=== PATIENT | female | born 1945 | race Caucasian/White ===

== ENCOUNTER 2016-10-16 12:43 | Inpatient (IN) | payer MEDICARE ==
[~2016-10-16] VITALS: Ht 157.5 cm; Wt 86.3 kg
[2016-10-16] MEDS ORDERED: PRAV20TA2 PO (14:09)
[2016-10-16] MEDS ORDERED: METF1000 PO (14:09)
[2016-10-16] MEDS ORDERED: ASPI325T PO (14:09)
[2016-10-16] MEDS ORDERED: PARO10TA2 PO (14:09)
[2016-10-16] MEDS ORDERED: LOSA25TA PO (14:41)
[2016-10-16] MEDS ORDERED: MULT-135 PO (14:41)
[2016-10-16] MEDS ORDERED: METO25TA3 PO (14:41)
[2016-10-16] MEDS ORDERED: SPIR25TA PO (14:41)
[2016-10-16] MEDS ORDERED: KRIL1000 PO (14:41)
[2016-10-16] MEDS ORDERED: FURO40TA PO (14:41)
[2016-10-16] MEDS ORDERED: CINN500T PO (14:41)
[2016-10-17 09:30] VITALS: BP 110/75; PULSE 88; RESP 18; TEMP 98; O2SAT 97
[2016-10-17] MEDS ORDERED: DEXAMETHASONE SOD PHOS 20 MG/5 ML VIAL ONE (09:52)
[2016-10-17] MEDS ORDERED: ceFAZolin 2 GM PREMIX 50 ML ONE (09:54)
[2016-10-17] MEDS ORDERED: VANCOMYCIN HCL 1000 MG VIAL ONE (09:56)
[2016-10-17] MEDS ORDERED: SODIUM CHLOR 0.9% 250 ML INJ 250 ML ONE (09:57)
[2016-10-17] MEDS ORDERED: LACTATED RINGER'S 1000 ML INJ 1,000 ML ONE (09:57)
[2016-10-17] MEDS ORDERED: MIDAZOLAM HCL 2 MG/2 ML VIAL ONE (10:23)
[2016-10-17] MEDS: SODIUM CHLORIDE 0.9% IV SCH ×2 (10:45→11:15)
[2016-10-17] MEDS: ROPIVACAINE PERI-ARTICULAR INJECTION. PERIART SCH ×10 (10:45→12:37)
[2016-10-17] MEDS: TRANEXAMIC ACID IV SCH ×2 (10:45→11:15)
[2016-10-17] MEDS ORDERED: GENTAMICIN SULFATE 80 MG/2 ML VIAL ONE (10:47)
[2016-10-17] MEDS ORDERED: ePHEDrine/NS 25 MG/5 ML SYR IV ONE (11:21)
[2016-10-17] MEDS ORDERED: PROPOFOL 200 MG/20 ML AMP IV ONE (11:21)
[2016-10-17] MEDS ORDERED: PHENYLEPH/NS 1000 MCG/10 ML SYR IV ONE (11:21)
[2016-10-17] MEDS ORDERED: ONDANSETRON HCL 4 MG/2 ML VIAL IV PUSH ONE (11:21)
[2016-10-17] MEDS ORDERED: VANCOMYCIN 1000 MG/NS 250 ML (for <70 kg) IV SCH ×2 (11:45)
[2016-10-17] MEDS ORDERED: ceFAZolin 2 GM PREMIX 50 ML IV SCH (11:45)
[2016-10-17] MEDS: POVIDONE IODINE 7.5% SCRUB 118 ML BOTTLE TOP SCH (11:45)
[2016-10-17] MEDS ORDERED: BUPIVACAINE LIPOSOME PF 1.3% 20 ML VIAL ONE (11:54)
[2016-10-17] MEDS: SODIUM CHLOR 0.9% 1000 ML INJ 1,000 ML IV SCH ×2 (13:03→23:03)
--- NOTE | 2016-10-17 13:06 | PD.OP ---
cc: Yovanny Tolbert MD Operative Report Date of Surgery: Oct 17, 2016 Preoperative Diagnosis: Right knee severe osteoarthritis Postoperative Diagnosis: Same Procedure: Right total knee arthroplasty Anesthesia: Adductor canal block and general Surgeon: Yovanny Tolbert Sander Operator(s): YAHIR Denis The surgical procedure was assisted by my Advanced Registered Nurse Practitioner. My SERVICE DESK LEAD presence was necessary throughout this case for the manipulation and positioning of the surgical extremity. My SERVICE DESK LEAD was assisting me throughout the duration of this procedure. The skill set of an Advance Registered Nurse Practitioner was medically necessary to complete this procedure. During the surgical case, the master hearth technician was working at the back table and the Advance Registered Nurse Practitioner was directly assisting me. Operation and Findings: IMPLANTS: DePuy Attune: Patella: size 29. Femur, posterior stabilized size 6. Tibia, rotating platform size 5. Tibial insert, rotating platform, posterior stabilized size 7 mm thickness. ESTIMATED BLOOD LOSS: 150 cc TOURNIQUET TIME: 44 minutes at 250 mmHg pressure. JUSTIFICATION FOR PROCEDURE: The patient has end-stage osteoarthritis to the knee. There is an attached conservative measures pathway form in the chart that describes the nonoperative measures that were undertaken prior to consideration of surgical management. The patient understood the risks and benefits of surgical management. See my office notes for further details PROCEDURE: The patient was brought back to the operative theatre. Adequate anesthesia was obtained. The patient received intravenous vancomycin and Ancef. The lower extremity was prepped and draped in the usual sterile fashion.The leg was exsanguinated, the tourniquet was raised. A standard anterior incision was performed followed by medial parapatellar arthrotomy was performed. End-stage arthritis was identified. Osteotomy of the patella was performed. We drilled holes for the patella. We trialed the patella component. We placed an intramedullary guide into the distal femur. We ultimately resected 11 mm off of the distal femur in 5 degrees of valgus. The remnants of the ACL and PCL were resected. Osteotomy of the proximal tibia was performed, resecting 5 mm off of the medial side. This was done with 3 degrees of posterior slope using an extramedullary guide. The distal end of the guide was placed in the mid aspect of the ankle. The femur was sized, and four chamfer cuts were completed in 3 of external rotation. We then cut the central box in the distal femur to replace the PCL. We resected the remnants of the menisci and removed osteophytes off of the femur and tibia. We then trialed the knee. We punched the tibia for the keel, and then used standard technique to cement in components. Excess cement was removed. We trialed the knee again and the final polyethylene thickness was chosen to provide extension to 0 degrees, and flexion of 140 degrees to gravity. The ligaments were appropriately balanced. Lateral release was necessary to obtain excellent patellofemoral tracking. The tourniquet was released and adequate hemostasis was obtained. An intra- articular injection of a ropivacaine cocktail was injected. The posterior knee was inspected for excess cement, which was removed. The final polyethylene was put into position after thorough irrigation. We then closed deep fascia with a #2 Stratafix followed by skin with 2-0 Vicryl followed by terrie. Postop plan is to weight-bear as tolerated. DVT prophylaxis will be performed with Jorge L, CONNIE drake, early mobilization, and Lovenox followed by aspirin. Yovanny Tolbert MD Oct 17, 2016 13:06
[2016-10-17] MEDS ORDERED: NORC5TAB PO (13:07)
[2016-10-17] MEDS ORDERED: ASPI325T PO (13:07)
[2016-10-17] MEDS ORDERED: ENOX40P SQ (13:07)
[2016-10-17] MEDS ORDERED: ACETAMINOPHEN/HYDROcodone 325 MG/5 MG TAB PO PRN (13:15)
[2016-10-17] MEDS ORDERED: NALOXONE HCL 0.4 MG/ML AMP IV PRN (13:15)
[2016-10-17] MEDS ORDERED: MAGNESIUM HYDROXIDE SUSP 30 ML CUP PO PRN (13:15)
[2016-10-17] MEDS ORDERED: MORPHINE SULFATE 4 MG/ML INJ IV PUSH PRN (13:15)
[2016-10-17] MEDS ORDERED: SODIUM CHLORIDE 0.9% FLUSH 5 ML FLUSH IVF PRN (13:15)
[2016-10-17] MEDS ORDERED: Post-op Orders (for Pharmacy) MISC XX ONE (13:15)
[2016-10-17] MEDS ORDERED: ALUMINUM/MAGNESIUM/SIMETH 30 ML CUP PO PRN (13:15)
[2016-10-17] MEDS ORDERED: diphenhydrAMINE HCL 50 MG/ML VIAL IV PRN (13:15)
[2016-10-17] MEDS ORDERED: ZOLPIDEM TARTRATE 5 MG TAB PO PRN (13:15)
[2016-10-17] MEDS ORDERED: ONDANSETRON HCL 4 MG/2 ML VIAL IVP PRN (13:15)
[2016-10-17] MEDS ORDERED: BISACODYL 10 MG SUPP PR PRN (13:15)
[2016-10-17] MEDS ORDERED: DO NOT ADM ANY ANTICOAGULANT DRUGS XX PRN (13:30)
[2016-10-17] MEDS ORDERED: fentaNYL CITRATE 250 MCG/5 ML AMP ONE (13:43)
[2016-10-17] MEDS ORDERED: TRANEXAMIC ACID IV SCH (14:00)
[2016-10-17] MEDS ORDERED: SODIUM CHLORIDE 0.9% IV SCH (14:00)
--- NOTE | 2016-10-17 14:10 | PD.CONS ---
[facility] By Reason for Consult medical management Primary Care Physician Non-Staff Diagnoses: History of Present Illness patient is a 70 y/o female with history of osteoarthritis who underwent right total knee arthroplasty today. at the time of my evaluation she was in no acute distress,complaining of mild to moderate pain to the right knee. otherwise no chest pain, dizziness,or sob. Review of Systems Constitutional: DENIES: Fever, Weight loss, Chills, Night Sweats Eyes: DENIES: Blurred vision, Diplopia, Vision loss, Double Vision Ears, nose, mouth, throat: DENIES: Tinnitus, Vertigo, Throat pain, Epistaxis Respiratory: DENIES: Apneas, Cough, Snoring, Wheezing, Hemoptysis, Sputum production, Shortness of breath Cardiovascular: DENIES: Chest pain, Palpitations, Syncope, Dyspnea on Exertion , PND, Lower Extremity Edema, Orthopnea, Claudication Gastrointestinal: DENIES: Abdominal pain, Black stools, Bloody stools, Constipation, Diarrhea, Nausea, Vomiting, Difficulty Swallowing, Anorexia Genitourinary: DENIES: Urinary frequency, Urgency, Hematuria, Dysuria Musculoskeletal: COMPLAINS OF: Joint pain (right knee), DENIES: Muscle aches, Stiffness, Joint Swelling Integumentary: DENIES: Rash Neurologic: DENIES: Abnormal gait, Headache, Localized weakness, Paresthesias, Seizures, Speech Problems, Tremor, Poor Balance Psychiatric: DENIES: Anxiety, Confusion, Mood changes, Depression, Hallucinations, Agitation, Suicidal Ideation, Homicidal Ideation, Delusions Past Family Social History Allergies: Coded Allergies: Sulfa (Unverified Allergy, Intermediate, RASH- ITCHING, 10/17/16) Adhesives (Unverified Allergy, Mild, ITCHING, 10/17/16) Past Medical History hypertension CHF diabetes mellitus depression breast cancer Past Surgical History cholecystectomy knee replacement mastectomy Reported Medications metformin metoprolol losartan lasix aldactone paxil Active Ordered Medications Current Medications Dexamethasone Sodium Phosphate 20 mg 20 mg STK-MED ONCE .ROUTE Last administered on 10/17/16 09:55; Start 10/17/16 at 09:52; Stop 10/17/16 at 09:53 ; Status DC Cefazolin Sodium/ Dextrose (Ancef 2 Gm Premix) 50 ml @ As Directed STK-MED ONCE .ROUTE Last administered on 10/17/16 09:55; Start 10/17/16 at 09:54; Stop at 09:55; Status DC Vancomycin HCl 1000 mg 1,000 mg STK-MED ONCE .ROUTE Last administered on 10:04; Start 10/17/16 at 09:56; Stop 10/17/16 at 09:57; Status DC Sodium Chloride 250 ml @ As Directed STK-MED ONCE .ROUTE ; Start 10/17/16 at 09 :57; Stop 10/17/16 at 09:58; Status DC Lactated Ringer's (Lr 1000 ml Inj) 1,000 ml @ As Directed STK-MED ONCE .ROUTE Last administered on 10/17/16 09:57; Start 10/17/16 at 09:57; Stop 10/17/16 at 09:58; Status DC Midazolam HCl 2 mg 2 mg STK-MED ONCE .ROUTE ; Start 10/17/16 at 10:23; Stop at 10:24; Status DC Tranexamic Acid 862 mg/Sodium Chloride 108.62 ml @ 200 mls/ hr ONCE IV Last administered on 10/17/16 11:15; Start 10/17/16 at 10:45; Stop 10/18/16 at 10:44 Ropivacaine/ Ketorolac Tromethamine/ Epinephrine HCl/ Clonidine/Sodium Chloride (Naropin 0.5% Pf Inj/Toradol Inj/ Adrenalin (1:1000) Inj/ Duraclon Inj/NS Inj) 100 ml @ 200 mls/hr ONCE PERIART Last administered on 10/17/16 12:37; Start 10/17/16 at 10:45; Stop 10/18/16 at 10:44 Gentamicin Sulfate (Gentamicin Inj) 240 mg STK-MED ONCE .ROUTE Last administered on 10/17/16 11:57; Start 10/17/16 at 10:47; Stop 10/17/16 at 10:48 ; Status DC Povidone Iodine 1 applic 1 applic ONCE TOP ; Start 10/17/16 at 11:45; Stop 10/20 at 11:44 Cefazolin Sodium/ Dextrose 50 ml @ 100 mls/hr HOSTLER HELPER IV ; Start 10/17/16 at 11:45; Stop 10/20/16 at 11:44 Vancomycin HCl/ Sodium Chloride (Vancomycin Inj/ NS 250 ml Inj) 250 ml @ 250 mls/hr HOSTLER HELPER IV ; Start 10/17/16 at 11:45; Stop 10/20/16 at 11:44 Furosemide (Lasix) 40 mg DAILY PO ; Start 10/18/16 at 09:00 Losartan Potassium (Cozaar) 25 mg DAILY PO ; Start 10/18/16 at 09:00 Metformin HCl (Glucophage) 1,000 mg BIDPC PO ; Start 10/19/16 at 09:00 Metoprolol Tartrate (Lopressor) 25 mg BID PO ; Start 10/17/16 at 21:00 Paroxetine HCl (Paxil) 20 mg DAILY PO ; Start 10/18/16 at 09:00 Pravastatin Sodium (Pravachol) 20 mg DAILY PO ; Start 10/18/16 at 09:00 Spironolactone 25 mg 25 mg DAILY PO ; Start 10/18/16 at 09:00 Sodium Chloride (NS 1000 ml Inj) 1,000 ml @ 100 mls/hr Q10H IV ; Start at 13:03 IV Flush (NS Flush) 2 ml UNSCH PRN IVF FLUSH AFTER USING IV ACCESS; Start 10/17 at 13:15 IV Flush 2 ml 2 ml BID IVF ; Start 10/17/16 at 21:00 Cefazolin Sodium/ Sodium Chloride (Ancef Inj/NS Inj) 100 ml @ 200 mls/hr Q6H IV ; Start 10/17/16 at 14:00; Stop 10/18/16 at 02:29 Miscellaneous Information (Post-op Orders (for Pharmacy)) STAT ONCE XX ; Start 10/17/16 at 13:15; Stop 10/17/16 at 13:41; Status DC Dexamethasone Sodium Phosphate (Decadron Inj) 10 mg ONCE ONCE IV ; Start at 07:45; Stop 10/18/16 at 07:46 Enoxaparin Sodium (Lovenox Inj) 40 mg Q24H SQ ; Start 10/18/16 at 13:00; Stop at 13:01 Acetaminophen/ Hydrocodone Bitart ([place] 5-325 Mg) 1 tab Q4H PRN PO PAIN LESS THAN 5 ON SCALE; Start 10/17/16 at 13:15 Acetaminophen/ Hydrocodone Bitart 2 tab 2 tab Q4H PRN PO PAIN SCALE 5 TO 10; Start 10/17/16 at 13:15 Tranexamic Acid/ Sodium Chloride (Cyklokapron Inj/ NS Inj) 108.62 ml @ 200 mls / hr UNSCH IV ; Start 10/17/16 at 14:00; Stop 10/17/16 at 14:33 Multivitamins/ Minerals Therapeutic (Theragran M Tab) 1 tab BID PO ; Start 10/18 at 21:00; Stop 12/17/16 at 20:59 Ondansetron HCl (Zofran Inj) 4 mg Q6H PRN IVP NAUSEA OR VOMITING; Start at 13:15 Docusate Sodium (Colace) 100 mg BID PO ; Start 10/18/16 at 21:00 Al Hydrox/Mg Hydrox/Simethicone (Mag-Al Plus Susp Liq) 30 ml Q6H PRN PO INDIGESTION; Start 10/17/16 at 13:15 Zolpidem Tartrate (Ambien) 5 mg HS PRN PO SLEEP; Start 10/17/16 at 13:15 Bisacodyl (Dulcolax Supp) 10 mg DAILY PRN NM CONSTIPATION; Start 10/17/16 at 13 :15 Magnesium Hydroxide (Milk Of Magnesia Liq) 30 ml DAILY PRN PO CONSTIPATION; Start 10/17/16 at 13:15 Naloxone HCl (Narcan Inj) 0.4 mg UNSCH PRN IV RESPIRATORY RATE LESS THAN 10; Start 10/17/16 at 13:15 Diphenhydramine HCl (Benadryl Inj) 25 mg Q6H PRN IV ITCHING; Start 10/17/16 at 13:15 Morphine Sulfate (Morphine Inj) 2 mg Q3H PRN IV PUSH pain greater than 5; Start 10/17/16 at 13:15 Fentanyl Citrate (fentaNYL INJ) 250 mcg STK-MED ONCE .ROUTE ; Start 10/17/16 at 13:43; Stop 10/17/16 at 13:44; Status DC Miscellaneous Information ALL NURSING DEPARTME... UNSCH PRN XX SEE LABEL COMMENTS; Start 10/17/16 at 13:30; Stop 10/18/16 at 13:29 Social History no smoking or drinking. Physical Exam Vital Signs Vital Signs Date Time Temp Pulse Resp B/P Pulse Ox O2 Delivery O2 Flow Rate FiO2 10/17/16 13:32 98.3 89 22 90/50 93 Simple Mask 6 10/17/16 09:30 98.0 88 18 110/75 97 Physical Exam GENERAL: This is a well-nourished, well-developed patient, in no apparent distress. HEAD: Atraumatic. Normocephalic. No temporal or scalp tenderness. EYES: Pupils equal round and reactive. Extraocular motions intact. No scleral icterus. No injection or drainage. ENT: Nose without bleeding, purulent drainage or septal hematoma. Throat without erythema, tonsillar hypertrophy or exudate. Uvula midline. Airway patent. NECK: Trachea midline. No JVD or lymphadenopathy. Supple, nontender, no meningeal signs. CARDIOVASCULAR: Regular rate and rhythm without murmurs, gallops, or rubs. RESPIRATORY: Clear to auscultation. Breath sounds equal bilaterally. No wheezes , rales, or rhonchi. GASTROINTESTINAL: Abdomen soft, non-tender, nondistended. No hepato-splenomegaly , or palpable masses. No guarding. MUSCULOSKELETAL: right knee covered with clean dressing. NEUROLOGICAL: Awake and alert. Cranial nerves II through XII intact. Motor and sensory grossly within normal limits. Five out of 5 muscle strength in all muscle groups. Normal speech. Laboratory Laboratory Tests Test 10/17/16 09:40 Blood Type A POSITIVE Antibody Screen NEGATIVE Assessment and Plan Assessment and Plan A/P - osteoarthritis- s/p right total knee arthroplasty continue with pain control and PT- management per ortho -diabetes mellitus; resumed home meds- accu-check with SSI - CHF/ depression; resumed home meds -DVT prophylaxis with lovenox per ortho thank you for the consult. Shawna Marroquin MD Oct 17, 2016 14:10
[2016-10-17] MEDS ORDERED: GLUCAGON 1 MG/ML VIAL OTHER PRN (14:15)
[2016-10-17] MEDS ORDERED: DEXTROSE 50% IN WATER 50 ML VIAL(D50) IV PUSH PRN (14:15)
--- NOTE | 2016-10-17 14:37 | RADRPT ---
EXAM DATE/TIME: 10/17/2016 13:53 [facility] COMPARISON: No previous studies available for comparison. INDICATIONS : Post op right knee replacement. MEDICAL HISTORY : None. SURGICAL HISTORY : None. ENCOUNTER: Initial ACUITY: 1 day PAIN SCORE: 2/10 LOCATION: Right knee. FINDINGS: AP and crosstable lateral views of the right knee were obtained and demonstrate that the patient is s tatus post arthroplasty. The femoral and tibial components are intact and in normal alignment. There are postoperative changes involving the patella. There is anterior soft tissue swelling and multiple surgical skin terrie. CONCLUSION: Status post knee arthroplasty. Yrn Dowling MD on October 17, 2016 at 14:35 Board Certified Radiologist. This report was verified electronically.
[2016-10-17] MEDS ORDERED: *morphine SULFATE 8 MG/ML PERIprocedure ONLY ONE (15:30)
[2016-10-17] MEDS: INSULIN ASPART SUPPLEMENTAL SCALE SQ SCH ×2 (16:00→20:18)
[2016-10-17 17:15] VITALS: BP 94/58; PULSE 94; RESP 16; TEMP 95.8; O2SAT 92
[2016-10-17 20:00] VITALS: BP 98/57; PULSE 100; RESP 18; TEMP 98.4; O2SAT 96
[2016-10-17] MEDS: SODIUM CHLORIDE 0.9% FLUSH 5 ML FLUSH IVF SCH (20:09)
[2016-10-17] MEDS: METOPROLOL TARTRATE 25 MG TAB PO SCH (21:00)
--- NOTE | 2016-10-17 21:15 | HHI.DCPOC ---
Discharge Care Plan Diagnosis: (1) Primary localized osteoarthrosis, lower leg (2) Status post total knee replacement, right Your Health Problems Are: Difficulty with ADL Goals to Promote Your Health * To prevent worsening of your condition and complications * To maintain your health at the optimal level Directions to Meet Your Goals Take your medications as prescribed Follow your dietary instruction Follow activity as directed Keep your appointments as scheduled Take your immunizations and boosters as scheduled If your symptoms worsen call your PCP, if no PCP go to Urgent Care Center or Emergency Room Smoking is Dangerous to Your Health. Avoid second hand smoke Call the 24-hour hour crisis hotline for domestic abuse at Daren Deng Oct 17, 2016 21:15
--- NOTE | 2016-10-17 21:16 | HHI.FF ---
Face to Face Verification Diagnosis: (1) Status post total knee replacement, right (2) Primary localized osteoarthrosis, lower leg Physical Therapy Gait training, Transfer training, bed to chair Knee: Total knee Right LE Weight Bearing: WB as tolerated Right LE Range of Motion: Active ROM Nursing Nursing: Namrata teaching, Dressing changes Dressing Changes: Daily dressing change I have seen patient Jenny Elizabeth on 10/17/16. My clinical findings support the need for the requested home health care services because: Limited ability to care for self High risk of falls I certify that my clinical findings support that this patient is homebound because: Post-op weakness Unsteady gait/balance Daren Deng Oct 17, 2016 21:16
[2016-10-18 00:17] VITALS: BP 156/72; PULSE 79; RESP 20; TEMP 98.5; O2SAT 98
[2016-10-18 04:11] VITALS: BP 100/53; PULSE 99; RESP 16; TEMP 96.4; O2SAT 95
[2016-10-18] MEDS: ACETAMINOPHEN/HYDROcodone 325 MG/5 MG TAB PO PRN ×4 (05:53→23:15)
[2016-10-18] MEDS: SODIUM CHLOR 0.9% 1000 ML INJ 1,000 ML IV SCH ×2 (05:55→19:03)
[2016-10-18] MEDS: INSULIN ASPART SUPPLEMENTAL SCALE SQ SCH ×4 (06:00→20:54)
[2016-10-18] MEDS ORDERED: COMMODE 3-IN-11 MIS (06:52)
[2016-10-18] MEDS ORDERED: CPMMACHINE (06:52)
[2016-10-18] MEDS ORDERED: WALKER WHEELS/F1 MIS (06:52)
[2016-10-18 06:58] LABS: HEMATOCRIT 25.5 % (35.0-46.0); MEAN CELL VOLUME 91.9 FL (80.0-100.0); MEAN CORPUSCULAR HEMOGLOBIN 31.3 PG (27.0-34.0); PLATELET COUNT 197 TH/MM3 (150-450); RED BLOOD COUNT 2.78 MIL/MM3 (4.00-5.30); RED CELL DISTRIBUTION WIDTH 14.1 % (11.6-17.2); REVIEW FLAG FINAL; WHITE BLOOD COUNT 11.6 TH/MM3 (4.0-11.0)
[2016-10-18] MEDS ORDERED: DEXAMETHASONE SOD PHOS 20 MG/5 ML VIAL IV ONE (07:45)
[2016-10-18 08:00] VITALS: BP 92/53; PULSE 99; RESP 18; TEMP 96.5; O2SAT 96
[2016-10-18] MEDS: SODIUM CHLORIDE 0.9% FLUSH 5 ML FLUSH IVF SCH ×2 (08:45→21:00)
[2016-10-18] MEDS: PRAVASTATIN SOD 20 MG TAB PO SCH (08:48)
[2016-10-18] MEDS: METOPROLOL TARTRATE 25 MG TAB PO SCH ×2 (08:48→20:53)
[2016-10-18] MEDS: PARoxetine HCL 20 MG TAB PO SCH (08:48)
[2016-10-18] MEDS ORDERED: FUROSEMIDE 40 MG TAB PO SCH (09:00)
[2016-10-18] MEDS ORDERED: LOSARTAN 25 MG TAB PO SCH (09:00)
[2016-10-18] MEDS ORDERED: SPIRONOLACTONE 25 MG TAB PO SCH (09:00)
[2016-10-18] MEDS: POVIDONE IODINE 7.5% SCRUB 118 ML BOTTLE TOP SCH (11:45)
[2016-10-18 12:00] VITALS: BP 108/68; PULSE 90; RESP 18; TEMP 96.2; O2SAT 98
--- NOTE | 2016-10-18 12:36 | PD.ORT.PN ---
Subjective Post Op Day #: 1 Subjective Remarks The patient is OOB in chair with minimal pain to the right knee. Patient is voiding and is ambulatory. Objective Vitals Vital Signs Date Time Temp Pulse Resp B/P Pulse Ox O2 Delivery O2 Flow Rate FiO2 10/18/16 08:00 96.5 99 18 92/53 96 10/18/16 04:11 96.4 99 16 100/53 95 10/18/16 00:17 98.5 79 20 156/72 98 10/17/16 20:00 98.4 100 18 98/57 96 10/17/16 17:15 95.8 94 16 94/58 92 10/17/16 16:00 86 20 96/53 96 Nasal Cannula 4 10/17/16 15:00 90 20 98/57 97 Nasal Cannula 4 10/17/16 14:45 84 22 107/62 97 Nasal Cannula 4 10/17/16 14:30 83 22 109/63 97 Nasal Cannula 4 10/17/16 14:15 81 22 99/56 91 Nasal Cannula 4 10/17/16 14:00 86 22 86/56 92 Nasal Cannula 4 10/17/16 13:45 87 22 100/56 93 Nasal Cannula 4 10/17/16 13:32 98.3 89 22 90/50 93 Simple Mask 6 I/O 10/17/16 10/17/16 10/17/16 10/18/16 10/18/16 10/18/16 07:00 15:00 23:00 07:00 15:00 23:00 Intake Total 740 ml 285 ml 1320 ml Output Total 350 ml 70 ml 1225 ml Balance 390 ml 215 ml 95 ml Intake Oral 1320 ml IV Total 40 ml 285 ml Other 700 ml Output Urine Total 250 ml 70 ml 1225 ml Estimated Blood Loss 100 ml # Voids 2 # Bowel Movements 0 Result Diagram: 10/18/16 0530 Imaging Last 24 hours Impressions Knee X-Ray 10/17/16 1303 Signed Impressions: Service Date/Time: Monday, October 17, 2016 13:53 - CONCLUSION: Status post knee arthroplasty. Yrn Dowling MD Procedures Right TKA Objective Remarks The patient's dressings are C/D/I. EHL/TA/G intact. 2+ pedal pulse. No calf swelling or tenderness. Minimal lower extremity swelling. + SILT. Assessment & Plan Ortho Post Op Day #: 1 Problem List: Assessment and Plan POD #1: Right TKA 1. WBAT RLE 2. Lovenox for DVT prophylaxis 3. Ice to the right knee 4. Patient is planning to go to [employer] on Saturday. 5. Continue to monitor anemia. Daren Deng Oct 18, 2016 12:36
--- NOTE | 2016-10-18 13:26 | HHI.PR ---
Subjective Remarks sitting on the chair with no distress. pain is controlled. no BM . no other complaints. Objective Vitals Vital Signs Date Time Temp Pulse Resp B/P Pulse Ox O2 Delivery O2 Flow Rate FiO2 10/18/16 08:00 96.5 99 18 92/53 96 10/18/16 04:11 96.4 99 16 100/53 95 10/18/16 00:17 98.5 79 20 156/72 98 10/17/16 20:00 98.4 100 18 98/57 96 10/17/16 17:15 95.8 94 16 94/58 92 10/17/16 16:00 86 20 96/53 96 Nasal Cannula 4 10/17/16 15:00 90 20 98/57 97 Nasal Cannula 4 10/17/16 14:45 84 22 107/62 97 Nasal Cannula 4 10/17/16 14:30 83 22 109/63 97 Nasal Cannula 4 10/17/16 14:15 81 22 99/56 91 Nasal Cannula 4 10/17/16 14:00 86 22 86/56 92 Nasal Cannula 4 10/17/16 13:45 87 22 100/56 93 Nasal Cannula 4 10/17/16 13:32 98.3 89 22 90/50 93 Simple Mask 6 I/O 10/17/16 10/17/16 10/17/16 10/18/16 10/18/16 10/18/16 07:00 15:00 23:00 07:00 15:00 23:00 Intake Total 740 ml 285 ml 1320 ml Output Total 350 ml 70 ml 1225 ml Balance 390 ml 215 ml 95 ml Intake Oral 1320 ml IV Total 40 ml 285 ml Other 700 ml Output Urine Total 250 ml 70 ml 1225 ml Estimated Blood Loss 100 ml # Voids 2 # Bowel Movements 0 Result Diagram: 10/18/16 0530 Imaging Last Impressions Knee X-Ray 10/17/16 1303 Signed Impressions: Service Date/Time: Monday, October 17, 2016 13:53 - CONCLUSION: Status post knee arthroplasty. Yrn Dowling MD Objective Remarks GENERAL: This is a well-nourished, well-developed patient, in no apparent distress. CARDIOVASCULAR: Regular rate and regular rhythm without murmurs, gallops, or rubs. RESPIRATORY: Clear to auscultation. Breath sounds equal bilaterally. No wheezes , rales, or rhonchi. GASTROINTESTINAL: Abdomen soft, non-tender, nondistended. Normal, active bowel sounds MUSCULOSKELETAL: right knee covered with clean dressing. NEURO: Alert & Oriented x4 to person, place, time, situation. Moves all ext x4 Medications and IVs Current Medications Dexamethasone Sodium Phosphate 20 mg 20 mg STK-MED ONCE .ROUTE Last administered on 10/17/16 09:55; Start 10/17/16 at 09:52; Stop 10/17/16 at 09:53 ; Status DC Cefazolin Sodium/ Dextrose (Ancef 2 Gm Premix) 50 ml @ As Directed STK-MED ONCE .ROUTE Last administered on 10/17/16 09:55; Start 10/17/16 at 09:54; Stop at 09:55; Status DC Vancomycin HCl 1000 mg 1,000 mg STK-MED ONCE .ROUTE Last administered on 10:04; Start 10/17/16 at 09:56; Stop 10/17/16 at 09:57; Status DC Sodium Chloride 250 ml @ As Directed STK-MED ONCE .ROUTE ; Start 10/17/16 at 09 :57; Stop 10/17/16 at 09:58; Status DC Lactated Ringer's (Lr 1000 ml Inj) 1,000 ml @ As Directed STK-MED ONCE .ROUTE Last administered on 10/17/16 09:57; Start 10/17/16 at 09:57; Stop 10/17/16 at 09:58; Status DC Midazolam HCl 2 mg 2 mg STK-MED ONCE .ROUTE ; Start 10/17/16 at 10:23; Stop at 10:24; Status DC Tranexamic Acid 862 mg/Sodium Chloride 108.62 ml @ 200 mls/ hr ONCE IV Last administered on 10/17/16 11:15; Start 10/17/16 at 10:45; Stop 10/18/16 at 10:44 ; Status DC Ropivacaine/ Ketorolac Tromethamine/ Epinephrine HCl/ Clonidine/Sodium Chloride (Naropin 0.5% Pf Inj/Toradol Inj/ Adrenalin (1:1000) Inj/ Duraclon Inj/NS Inj) 100 ml @ 200 mls/hr ONCE PERIART Last administered on 10/17/16 12:37; Start 10/17/16 at 10:45; Stop 10/18/16 at 10:44; Status DC Gentamicin Sulfate (Gentamicin Inj) 240 mg STK-MED ONCE .ROUTE Last administered on 10/17/16 11:57; Start 10/17/16 at 10:47; Stop 10/17/16 at 10:48 ; Status DC Povidone Iodine 1 applic 1 applic ONCE TOP ; Start 10/17/16 at 11:45; Stop 10/20 at 11:44 Cefazolin Sodium/ Dextrose 50 ml @ 100 mls/hr COMBAT SYSTEMS ENGINEER IV ; Start 10/17/16 at 11:45; Stop 10/20/16 at 11:44 Vancomycin HCl/ Sodium Chloride (Vancomycin Inj/ NS 250 ml Inj) 250 ml @ 250 mls/hr COMBAT SYSTEMS ENGINEER IV ; Start 10/17/16 at 11:45; Stop 10/20/16 at 11:44 Furosemide (Lasix) 40 mg DAILY PO ; Start 10/18/16 at 09:00 Losartan Potassium (Cozaar) 25 mg DAILY PO ; Start 10/18/16 at 09:00 Metformin HCl (Glucophage) 1,000 mg BIDPC PO ; Start 10/19/16 at 09:00 Metoprolol Tartrate (Lopressor) 25 mg BID PO Last administered on 10/18/16 08: 48; Start 10/17/16 at 21:00 Paroxetine HCl (Paxil) 20 mg DAILY PO Last administered on 10/18/16 08:48; Start 10/18/16 at 09:00 Pravastatin Sodium (Pravachol) 20 mg DAILY PO Last administered on 10/18/16 08 :48; Start 10/18/16 at 09:00 Spironolactone 25 mg 25 mg DAILY PO ; Start 10/18/16 at 09:00 Sodium Chloride (NS 1000 ml Inj) 1,000 ml @ 100 mls/hr Q10H IV Last administered on 10/18/16 05:55; Start 10/17/16 at 13:03 IV Flush (NS Flush) 2 ml UNSCH PRN IVF FLUSH AFTER USING IV ACCESS; Start 10/17 at 13:15 IV Flush 2 ml 2 ml BID IVF Last administered on 10/18/16 08:45; Start at 21:00 Cefazolin Sodium/ Sodium Chloride (Ancef Inj/NS Inj) 100 ml @ 200 mls/hr Q6H IV Last administered on 10/18/16 02:58; Start 10/17/16 at 14:00; Stop at 02:29; Status DC Miscellaneous Information (Post-op Orders (for Pharmacy)) STAT ONCE XX ; Start 10/17/16 at 13:15; Stop 10/17/16 at 13:41; Status DC Dexamethasone Sodium Phosphate (Decadron Inj) 10 mg ONCE ONCE IV Last administered on 10/18/16 08:45; Start 10/18/16 at 07:45; Stop 10/18/16 at 07:46 ; Status DC Enoxaparin Sodium (Lovenox Inj) 40 mg Q24H SQ ; Start 10/18/16 at 13:00; Stop at 13:01 Acetaminophen/ Hydrocodone Bitart ([place] 5-325 Mg) 1 tab Q4H PRN PO PAIN LESS THAN 5 ON SCALE Last administered on 10/18/16 10:03; Start 10/17/16 at 13:15 Acetaminophen/ Hydrocodone Bitart 2 tab 2 tab Q4H PRN PO PAIN SCALE 5 TO 10; Start 10/17/16 at 13:15 Tranexamic Acid/ Sodium Chloride (Cyklokapron Inj/ NS Inj) 108.62 ml @ 200 mls / hr UNSCH IV ; Start 10/17/16 at 14:00; Stop 10/17/16 at 14:33; Status DC Multivitamins/ Minerals Therapeutic (Theragran M Tab) 1 tab BID PO ; Start 10/18 at 21:00; Stop 12/17/16 at 20:59 Ondansetron HCl (Zofran Inj) 4 mg Q6H PRN IVP NAUSEA OR VOMITING; Start at 13:15 Docusate Sodium (Colace) 100 mg BID PO ; Start 10/18/16 at 21:00 Al Hydrox/Mg Hydrox/Simethicone (Mag-Al Plus Susp Liq) 30 ml Q6H PRN PO INDIGESTION; Start 10/17/16 at 13:15 Zolpidem Tartrate (Ambien) 5 mg HS PRN PO SLEEP; Start 10/17/16 at 13:15 Bisacodyl (Dulcolax Supp) [address] CONSTIPATION; Start 10/17/16 at 13 :15 Magnesium Hydroxide (Milk Of Magnesia Liq) 30 ml DAILY PRN PO CONSTIPATION Last administered on 10/18/16 08:49; Start 10/17/16 at 13:15; Stop 10/18/16 at 10:21; Status DC Naloxone HCl (Narcan Inj) 0.4 mg UNSCH PRN IV RESPIRATORY RATE LESS THAN 10; Start 10/17/16 at 13:15 Diphenhydramine HCl (Benadryl Inj) 25 mg Q6H PRN IV ITCHING; Start 10/17/16 at 13:15 Morphine Sulfate (Morphine Inj) 2 mg Q3H PRN IV PUSH pain greater than 5; Start 10/17/16 at 13:15 Fentanyl Citrate (fentaNYL INJ) 250 mcg STK-MED ONCE .ROUTE ; Start 10/17/16 at 13:43; Stop 10/17/16 at 13:44; Status DC Miscellaneous Information ALL NURSING DEPARTME... UNSCH PRN XX SEE LABEL COMMENTS; Start 10/17/16 at 13:30; Stop 10/18/16 at 13:29 Dextrose (D50w (Vial) Inj) 25 ml UNSCH PRN IV PUSH HYPOGLYCEMIA-SEE COMMENTS; Start 10/17/16 at 14:15 Glucagon (Glucagon Inj) 1 mg UNSCH PRN OTHER HYPOGLYCEMIA-SEE COMMENTS; Start 10/17/16 at 14:15 Insulin Aspart (NovoLOG SUPPLEMENTAL SCALE) 1 ACHS SLIDING SCALE SQ Last administered on 10/18/16 11:40; Start 10/17/16 at 16:00 Morphine Sulfate (*morphine INJ PERIprocedure ONLY) 8 mg STK-MED ONCE .ROUTE Last administered on 10/17/16 15:30; Start 10/17/16 at 15:30; Stop 10/17/16 at 15:31; Status DC Magnesium Hydroxide (Milk Of Magnesia Liq) 30 ml BID PO ; Start 10/18/16 at 21: 00 Sennosides (Senokot) 17.2 mg HS PO ; Start 10/18/16 at 21:00 Propofol (Diprivan 200 Mg/20 ml Inj) 200 mg STK-MED ONCE IV ; Start 10/17/16 at 11:21; Stop 10/18/16 at 11:22; Status DC Phenylephrine HCl (Neosynephrine/ NS 1000 Mcg/10ml Syr) 1,000 mcg STK-MED ONCE IV ; Start 10/17/16 at 11:21; Stop 10/18/16 at 11:22; Status DC Ephedrine Sulfate (ePHEDrine/NS 25 MG/5 ML SYR) 25 mg STK-MED ONCE IV ; Start at 11:21; Stop 10/18/16 at 11:22; Status DC Ondansetron HCl (Zofran Inj) 4 mg STK-MED ONCE IV PUSH ; Start 10/17/16 at 11:21 ; Stop 10/18/16 at 11:22; Status DC A/P Assessment and Plan A/p - osteoarthritis- s/p right total knee arthroplasty continue with pain control and PT- management per ortho -diabetes mellitus; resumed home meds- accu-check with SSI -CHF; hold losartan and diuretics for now due to low-normal BP's -anemia- post-op; will monitor and transfuse as needed - depression; resumed home meds -DVT prophylaxis with lovenox per ortho Shawna Marroquin MD Oct 18, 2016 13:26
[2016-10-18] MEDS: ENOXAPARIN SODIUM 40 MG/0.4 ML SYRINGE SQ SCH (13:47)
[2016-10-18 17:00] VITALS: BP 116/68; PULSE 98; RESP 12; TEMP 97.1; O2SAT 94
[2016-10-18 20:00] VITALS: BP 116/76; PULSE 92; RESP 16; TEMP 96.4; O2SAT 93
[2016-10-18] MEDS: MULTIVITAMINS/MINERALS THERAPEUTIC TAB PO SCH (20:53)
[2016-10-18] MEDS: DOCUSATE SODIUM 100 MG CAP PO SCH (20:53)
[2016-10-18] MEDS: MAGNESIUM HYDROXIDE SUSP 30 ML CUP PO SCH (20:53)
[2016-10-18] MEDS ORDERED: SENNOSIDES 8.6 MG TAB PO SCH (21:00)
[2016-10-19] VITALS: BP 111/64; PULSE 95; RESP 16; TEMP 97.3; O2SAT 93
[2016-10-19] MEDS: ACETAMINOPHEN/HYDROcodone 325 MG/5 MG TAB PO PRN ×3 (03:44→14:50)
[2016-10-19 04:00] VITALS: BP 108/56; PULSE 85; RESP 18; TEMP 95.6; O2SAT 96
[2016-10-19] MEDS: SODIUM CHLOR 0.9% 1000 ML INJ 1,000 ML IV SCH ×2 (05:03→14:54)
[2016-10-19] MEDS: INSULIN ASPART SUPPLEMENTAL SCALE SQ SCH ×3 (07:00→16:00)
[2016-10-19 07:02] LABS: HEMATOCRIT 25.4 % (35.0-46.0); MEAN CELL VOLUME 89.9 FL (80.0-100.0); MEAN CORPUSCULAR HEMOGLOBIN 30.9 PG (27.0-34.0); MEAN CORPUSCULAR HGB CONC 34.4 % (32.0-36.0); PLATELET COUNT 182 TH/MM3 (150-450); RED BLOOD COUNT 2.83 MIL/MM3 (4.00-5.30); RED CELL DISTRIBUTION WIDTH 14.1 % (11.6-17.2); REVIEW FLAG FINAL; WHITE BLOOD COUNT 8.1 TH/MM3 (4.0-11.0)
[2016-10-19 08:00] VITALS: BP 123/74; PULSE 80; RESP 18; TEMP 96.6; O2SAT 99
[2016-10-19] MEDS: DOCUSATE SODIUM 100 MG CAP PO SCH (08:28)
[2016-10-19] MEDS: SODIUM CHLORIDE 0.9% FLUSH 5 ML FLUSH IVF SCH (08:28)
[2016-10-19] MEDS: MAGNESIUM HYDROXIDE SUSP 30 ML CUP PO SCH (08:28)
[2016-10-19] MEDS: METOPROLOL TARTRATE 25 MG TAB PO SCH (08:29)
[2016-10-19] MEDS: PARoxetine HCL 20 MG TAB PO SCH (08:29)
[2016-10-19] MEDS: MULTIVITAMINS/MINERALS THERAPEUTIC TAB PO SCH (08:31)
[2016-10-19] MEDS: PRAVASTATIN SOD 20 MG TAB PO SCH (08:31)
[2016-10-19] MEDS ORDERED: metFORMIN HCL 500 MG TAB PO SCH (09:00)
[2016-10-19] MEDS: POVIDONE IODINE 7.5% SCRUB 118 ML BOTTLE TOP SCH (11:45)
[2016-10-19 12:00] VITALS: BP 99/65; PULSE 91; RESP 18; TEMP 96.5; O2SAT 100
[2016-10-19 12:32] VITALS: O2SAT 96
--- NOTE | 2016-10-19 12:36 | HHI.PR ---
Subjective Remarks complaining of pain to the right calf. otherwise no other complaints. d/w the RN. Objective Vitals Vital Signs Date Time Temp Pulse Resp B/P Pulse Ox O2 Delivery O2 Flow Rate FiO2 10/19/16 12:32 96 21 10/19/16 08:00 96.6 80 18 123/74 99 10/19/16 04:00 95.6 85 18 108/56 96 10/19/16 00:00 97.3 95 16 111/64 93 10/18/16 20:00 96.4 92 16 116/76 93 10/18/16 17:00 97.1 98 12 116/68 94 I/O 10/18/16 10/18/16 10/18/16 10/19/16 10/19/16 10/19/16 07:00 15:00 23:00 07:00 15:00 23:00 Intake Total 1320 ml 240 ml 480 ml 240 ml Output Total 1225 ml Balance 95 ml 240 ml 480 ml 240 ml Intake Oral 1320 ml 240 ml 480 ml 240 ml Output Urine Total 1225 ml # Voids 2 4 2 2 # Bowel Movements 0 0 0 0 Result Diagram: 10/19/16 0603 Imaging Last Impressions Knee X-Ray 10/17/16 1303 Signed Impressions: Service Date/Time: Monday, October 17, 2016 13:53 - CONCLUSION: Status post knee arthroplasty. Yrn Dowling MD Objective Remarks GENERAL: This is a well-nourished, well-developed patient, in no apparent distress. CARDIOVASCULAR: Regular rate and regular rhythm without murmurs, gallops, or rubs. RESPIRATORY: Clear to auscultation. Breath sounds equal bilaterally. No wheezes , rales, or rhonchi. GASTROINTESTINAL: Abdomen soft, non-tender, nondistended. Normal, active bowel sounds MUSCULOSKELETAL: right knee covered with clean dressing/ mild tenderness over the right calf. NEURO: Alert & Oriented x4 to person, place, time, situation. Moves all ext x4 Medications and IVs Current Medications Dexamethasone Sodium Phosphate 20 mg 20 mg STK-MED ONCE .ROUTE Last administered on 10/17/16t 09:55; Start 10/17/16 at 09:52; Stop 10/17/16 at 09:53 ; Status DC Cefazolin Sodium/ Dextrose (Ancef 2 Gm Premix) 50 ml @ As Directed STK-MED ONCE .ROUTE Last administered on 10/17/16 09:55; Start 10/17/16 at 09:54; Stop at 09:55; Status DC Vancomycin HCl 1000 mg 1,000 mg STK-MED ONCE .ROUTE Last administered on 10:04; Start 10/17/16 at 09:56; Stop 10/17/16 at 09:57; Status DC Sodium Chloride 250 ml @ As Directed STK-MED ONCE .ROUTE ; Start 10/17/16 at 09 :57; Stop 10/17/16 at 09:58; Status DC Lactated Ringer's (Lr 1000 ml Inj) 1,000 ml @ As Directed STK-MED ONCE .ROUTE Last administered on 10/17/16 09:57; Start 10/17/16 at 09:57; Stop 10/17/16 at 09:58; Status DC Midazolam HCl 2 mg 2 mg STK-MED ONCE .ROUTE ; Start 10/17/16 at 10:23; Stop at 10:24; Status DC Tranexamic Acid 862 mg/Sodium Chloride 108.62 ml @ 200 mls/ hr ONCE IV Last administered on 10/17/16 11:15; Start 10/17/16 at 10:45; Stop 10/18/16 at 10:44 ; Status DC Ropivacaine/ Ketorolac Tromethamine/ Epinephrine HCl/ Clonidine/Sodium Chloride (Naropin 0.5% Pf Inj/Toradol Inj/ Adrenalin (1:1000) Inj/ Duraclon Inj/NS Inj) 100 ml @ 200 mls/hr ONCE PERIART Last administered on 10/17/16 12:37; Start 10/17/16 at 10:45; Stop 10/18/16 at 10:44; Status DC Gentamicin Sulfate (Gentamicin Inj) 240 mg STK-MED ONCE .ROUTE Last administered on 10/17/16 11:57; Start 10/17/16 at 10:47; Stop 10/17/16 at 10:48 ; Status DC Povidone Iodine 1 applic 1 applic ONCE TOP ; Start 10/17/16 at 11:45; Stop 10/20 at 11:44 Cefazolin Sodium/ Dextrose 50 ml @ 100 mls/hr OPERATION SHIFT SUPERVISOR IV ; Start 10/17/16 at 11:45; Stop 10/20/16 at 11:44 Vancomycin HCl/ Sodium Chloride (Vancomycin Inj/ NS 250 ml Inj) 250 ml @ 250 mls/hr OPERATION SHIFT SUPERVISOR IV ; Start 10/17/16 at 11:45; Stop 10/20/16 at 11:44 Furosemide (Lasix) 40 mg DAILY PO ; Start 10/18/16 at 09:00; Status Hold Losartan Potassium (Cozaar) 25 mg DAILY PO ; Start 10/18/16 at 09:00; Status Hold Metformin HCl (Glucophage) 1,000 mg BIDPC PO Last administered on 10/19/16 08: 28; Start 10/19/16 at 09:00 Metoprolol Tartrate (Lopressor) 25 mg BID PO Last administered on 10/19/16 08: 29; Start 10/17/16 at 21:00 Paroxetine HCl (Paxil) 20 mg DAILY PO Last administered on 10/19/16 08:29; Start 10/18/16 at 09:00 Pravastatin Sodium (Pravachol) 20 mg DAILY PO Last administered on 10/19/16 08 :31; Start 10/18/16 at 09:00 Spironolactone 25 mg 25 mg DAILY PO ; Start 10/18/16 at 09:00; Status Hold Sodium Chloride (NS 1000 ml Inj) 1,000 ml @ 100 mls/hr Q10H IV Last administered on 10/18/16 05:55; Start 10/17/16 at 13:03 IV Flush (NS Flush) 2 ml UNSCH PRN IVF FLUSH AFTER USING IV ACCESS; Start 10/17 at 13:15 IV Flush 2 ml 2 ml BID IVF Last administered on 10/19/16 08:28; Start at 21:00 Cefazolin Sodium/ Sodium Chloride (Ancef Inj/NS Inj) 100 ml @ 200 mls/hr Q6H IV Last administered on 10/18/16 02:58; Start 10/17/16 at 14:00; Stop at 02:29; Status DC Miscellaneous Information (Post-op Orders (for Pharmacy)) STAT ONCE XX ; Start 10/17/16 at 13:15; Stop 10/17/16 at 13:41; Status DC Dexamethasone Sodium Phosphate (Decadron Inj) 10 mg ONCE ONCE IV Last administered on 10/18/16 08:45; Start 10/18/16 at 07:45; Stop 10/18/16 at 07:46 ; Status DC Enoxaparin Sodium (Lovenox Inj) 40 mg Q24H SQ Last administered on 10/18/16 13 :47; Start 10/18/16 at 13:00; Stop 10/27/16 at 13:01 Acetaminophen/ Hydrocodone Bitart ([place] 5-325 Mg) 1 tab Q4H PRN PO PAIN LESS THAN 5 ON SCALE Last administered on 10/19/16 08:33; Start 10/17/16 at 13:15 Acetaminophen/ Hydrocodone Bitart 2 tab 2 tab Q4H PRN PO PAIN SCALE 5 TO 10; Start 10/17/16 at 13:15 Tranexamic Acid/ Sodium Chloride (Cyklokapron Inj/ NS Inj) 108.62 ml @ 200 mls / hr UNSCH IV ; Start 10/17/16 at 14:00; Stop 10/17/16 at 14:33; Status DC Multivitamins/ Minerals Therapeutic (Theragran M Tab) 1 tab BID PO Last administered on 10/19/16 08:31; Start 10/18/16 at 21:00; Stop 12/17/16 at 20:59 Ondansetron HCl (Zofran Inj) 4 mg Q6H PRN IVP NAUSEA OR VOMITING; Start at 13:15 Docusate Sodium (Colace) 100 mg BID PO Last administered on 10/19/16 08:28; Start 10/18/16 at 21:00 Al Hydrox/Mg Hydrox/Simethicone (Mag-Al Plus Susp Liq) 30 ml Q6H PRN PO INDIGESTION; Start 10/17/16 at 13:15 Zolpidem Tartrate (Ambien) 5 mg HS PRN PO SLEEP; Start 10/17/16 at 13:15 Bisacodyl (Dulcolax Supp) 10 mg DAILY PRN [place] CONSTIPATION; Start 10/17/16 at 13 :15 Magnesium Hydroxide (Milk Of Magnesia Liq) 30 ml DAILY PRN PO CONSTIPATION Last administered on 10/18/16 08:49; Start 10/17/16 at 13:15; Stop 10/18/16 at 10:21; Status DC Naloxone HCl (Narcan Inj) 0.4 mg UNSCH PRN IV RESPIRATORY RATE LESS THAN 10; Start 10/17/16 at 13:15 Diphenhydramine HCl (Benadryl Inj) 25 mg Q6H PRN IV ITCHING; Start 10/17/16 at 13:15 Morphine Sulfate (Morphine Inj) 2 mg Q3H PRN IV PUSH pain greater than 5; Start 10/17/16 at 13:15 Fentanyl Citrate (fentaNYL INJ) 250 mcg STK-MED ONCE .ROUTE ; Start 10/17/16 at 13:43; Stop 10/17/16 at 13:44; Status DC Miscellaneous Information ALL NURSING DEPARTME... UNSCH PRN XX SEE LABEL COMMENTS; Start 10/17/16 at 13:30; Stop 10/18/16 at 13:29; Status DC Dextrose (D50w (Vial) Inj) 25 ml UNSCH PRN IV PUSH HYPOGLYCEMIA-SEE COMMENTS; Start 10/17/16 at 14:15 Glucagon (Glucagon Inj) 1 mg UNSCH PRN OTHER HYPOGLYCEMIA-SEE COMMENTS; Start 10/17/16 at 14:15 Insulin Aspart (NovoLOG SUPPLEMENTAL SCALE) 1 ACHS SLIDING SCALE SQ Last administered on 10/18/16 20:54; Start 10/17/16 at 16:00 Morphine Sulfate (*morphine INJ PERIprocedure ONLY) 8 mg STK-MED ONCE .ROUTE Last administered on 10/17/16 15:30; Start 10/17/16 at 15:30; Stop 10/17/16 at 15:31; Status DC Magnesium Hydroxide (Milk Of Magnesia Liq) 30 ml BID PO Last administered on 08:28; Start 10/18/16 at 21:00 Sennosides (Senokot) 17.2 mg HS PO Last administered on 10/18/16 20:53; Start 10/18/16 at 21:00 Propofol (Diprivan 200 Mg/20 ml Inj) 200 mg STK-MED ONCE IV ; Start 10/17/16 at 11:21; Stop 10/18/16 at 11:22; Status DC Phenylephrine HCl (Neosynephrine/ NS 1000 Mcg/10ml Syr) 1,000 mcg STK-MED ONCE IV ; Start 10/17/16 at 11:21; Stop 10/18/16 at 11:22; Status DC Ephedrine Sulfate (ePHEDrine/NS 25 MG/5 ML SYR) 25 mg STK-MED ONCE IV ; Start at 11:21; Stop 10/18/16 at 11:22; Status DC Ondansetron HCl (Zofran Inj) 4 mg STK-MED ONCE IV PUSH ; Start 10/17/16 at 11:21 ; Stop 10/18/16 at 11:22; Status DC A/P Assessment and Plan A/p - osteoarthritis- s/p right total knee arthroplasty continue with pain control and PT- management per ortho -pain to the right calf; will check venous doppler of the right lower extremity -diabetes mellitus; resumed home meds- accu-check with SSI -CHF; hold losartan and diuretics for now due to low-normal BP's -anemia- post-op; H/H stable. - depression; resumed home meds -DVT prophylaxis with lovenox per ortho Shawna Marroquin MD Oct 19, 2016 12:36
[2016-10-19] MEDS: ENOXAPARIN SODIUM 40 MG/0.4 ML SYRINGE SQ SCH (13:14)
--- NOTE | 2016-10-19 14:58 | RADRPT ---
EXAM DATE/TIME: 10/19/2016 13:45 [facility] COMPARISON: No previous studies available for comparison. INDICATIONS : Right leg pain post knee replacement. MEDICAL HISTORY : Hypertension. Arthritis. Diabetes. Right breast cancer. Chemotherapy. SURGICAL HISTORY : Cholecystectomy. Dilation and curettage. Bilateral knee replacement. ENCOUNTER: Initial ACUITY: 1 day PAIN SCORE: 2/10 LOCATION: Right leg. TECHNIQUE: Venous ultrasound of the leg was performed from the inguinal ligament to the proximal calf. Real-naldo e, color Doppler and spectral tracing, compression and augmentation techniques were used. FINDINGS: There is normal compressibility of the deep venous system from the inguinal region to the proximal ca lf. No echogenic clot is seen in the lumen of the common femoral, femoral, popliteal, and posterior tibial veins. There is a normal response of the venous system to proximal and distal augmentation an d respiration. CONCLUSION: Negative exam. No sonographic or Doppler findings of deep venous thrombosis in the right lower e xtremity. Itz Emanuel MD on October 19, 2016 at 14:54 Board Certified Radiologist. This report was verified electronically.
--- NOTE | 2016-10-19 15:26 | PD.ORT.PN ---
Subjective Subjective Remarks doing well, no c/o Objective Vitals Vital Signs Date Time Temp Pulse Resp B/P Pulse Ox O2 Delivery O2 Flow Rate FiO2 10/19/16 12:32 96 21 10/19/16 12:00 96.5 91 18 99/65 100 10/19/16 08:00 96.6 80 18 123/74 99 10/19/16 04:00 95.6 85 18 108/56 96 10/19/16 00:00 97.3 95 16 111/64 93 10/18/16 20:00 96.4 92 16 116/76 93 10/18/16 17:00 97.1 98 12 116/68 94 I/O 10/18/16 10/18/16 10/18/16 10/19/16 10/19/16 10/19/16 07:00 15:00 23:00 07:00 15:00 23:00 Intake Total 1320 ml 240 ml 480 ml 240 ml Output Total 1225 ml Balance 95 ml 240 ml 480 ml 240 ml Intake Oral 1320 ml 240 ml 480 ml 240 ml Output Urine Total 1225 ml # Voids 2 4 2 2 # Bowel Movements 0 0 0 0 Result Diagram: 10/19/16 0603 Imaging Last 24 hours Impressions Knee X-Ray 10/17/16 1303 Signed Impressions: Service Date/Time: Monday, October 17, 2016 13:53 - CONCLUSION: Status post knee arthroplasty. Yrn Dowling MD U/S no DVT Procedures Right TKA Objective Remarks The patient's incision is C/D/I, no erythema. mild calf swelling or tenderness. Minimal lower extremity swelling. + SILT. Assessment & Plan Assessment and Plan POD #2: Right TKA 1. WBAT RLE 2. Lovenox for DVT prophylaxis 3. Ice to the right knee 4. Patient is planning to go to [facility] today. 5. U/S is neg for DVT Yovanny Tolbert MD Oct 19, 2016 15:26
--- NOTE | 2016-10-22 17:28 | HHI.DS ---
Discharge Summary Admission Date Oct 17, 2016 at 08:36 Discharge Date: Oct 19, 2016 Admitting Diagnosis primary localized OA, lower leg Status post knee replacement, right Diagnosis: (1) Primary localized osteoarthrosis, lower leg Diagnosis: Principal (2) Status post total knee replacement, right Diagnosis: Principal Procedures Right TKA Brief History This is a 70 year old female patient with severe OA of the right knee CBC/BMP: 10/19/16 0603 PE at Discharge The patient's incision is C/D/I, no erythema. mild calf swelling or tenderness. Minimal lower extremity swelling. + SILT. Hospital Course The patient was admitted to the hospital for severe OA of the right knee to have a right TKA. The patient's surgery went well with no complications. The patient had a normal hospital stay and was discharged home with home health. The patient is WBAT on the RLE. The patient's incision is well approximated with surgical clips intact. The patient will f/u with Dr. Tolbert in 10 days in the office. Pt Condition on Discharge: Stable Discharge Disposition: Disch w/ Home Health Serv Discharge Instructions Diet Instructions: Diabetic Diet Activities You Can Perform: Weight Bearing as Rajendra Activities to Avoid: Strenuous Activity Follow up Referrals: Orthopedics with Yovanny Tolbert MD New Medications: Aspirin (Aspirin) 325 Mg Tab 325 MG PO DAILY Start Aspirin after Lovenox is completed. Prevent Blood Clot # 30 Ref 0 TAB Commode 3-in-1 (Commode 3-in-1) 1 Mis Mis 1 EA .ROUTE DIRECTED #1 Ref 0 EA CPM-Continuous Passive Motion Machine (CPM-Continuous Passive Motion Machine) 1 Ea Device 1 EA .ROUTE DIRECTED #1 Ref 0 EA Enoxaparin Inj (Lovenox Inj) 40 Mg/0.4 Ml Syr 40 MG SQ DAILY Start Aspirin after Lovenox is completed. Blood Clot Prevention # 10 Ref 0 SYRINGE Hydrocodone-Acetaminophen ([place]) 5-325 mg Tab 1-2 TAB PO Q4H PRN PAIN #60 Ref 0 TAB Walker with Front Wheels (Walker with Front Wheels) 1 Mis Mis 1 EA .ROUTE DIRECTED #1 Ref 0 EA Continued Medications: Cinnamon (Cinnamon) 500 Mg Tab 1000 MG PO DAILY #1 BOTTLE Furosemide (Furosemide) 40 Mg Tab 40 MG PO DAILY #30 Ref 0 TAB Losartan (Losartan) 25 Mg Tab 25 MG PO DAILY Blood Pressure Management #30 Ref 0 TAB Metformin (Metformin) 1,000 Mg Tab 1000 MG PO BIDPC With meals Blood Sugar Management #60 Ref 0 TAB Metoprolol Tartrate (Metoprolol Tartrate) 25 Mg Tab 25 MG PO BID #60 Ref 0 TAB Multiple Vitamin (Multi Vitamin) 1 Tab Tab 1 TAB PO DAILY TAB Paroxetine (Paroxetine) 10 Mg Tab 20 MG PO DAILY #30 Ref 0 TAB Pravastatin (Pravastatin) 20 Mg Tab 20 MG PO DAILY Cholesterol Management #30 Ref 0 TAB Spironolactone (Spironolactone) 25 Mg Tab 25 MG PO DAILY #30 Ref 0 TAB Discontinued Medications: Aspirin (Aspirin) 325 Mg Tab 325 MG PO DAILY #30 Ref 0 TAB Krill Oil (Krill Oil) 1,000 Mg Cap 1000 MG PO DAILY Daren Campos Oct 22, 2016 17:28
== END 2016-10-19 16:25 | DRG 470 ==
LOC: HSDI 10-17 08:36 → N06B 10-17 17:16
PROVIDERS: ADMIT Orthopaedic Surgery; ATTEND Orthopaedic Surgery
PROC: 3E0T3CZ (ICD-10-PCS; 2016-10-17)
PROC: 0SRC0J9 Replacement of Right Knee Joint with Synthetic Substitute, Cemented, Open Approach (ICD-10-PCS; principal; 2016-10-17 10:59)
DX: M17.11 Unilateral primary osteoarthritis, right knee (principal); I50.9 Heart failure, unspecified; I10 Essential (primary) hypertension; E11.9 Type 2 diabetes mellitus without complications; F32.9 Major depressive disorder, single episode, unspecified; D64.9 Anemia, unspecified; Z85.3 Personal history of malignant neoplasm of breast; Z96.652 Presence of left artificial knee joint
CPT/HCPCS: 73560; 82948; 85027; 86850; 86900; 86901; 93971; 94150; C1776; C9290; J0171; J0690; J0735; J1100; J1580; J1650; J1815; J1885; J2250; J2270; J2370; J2405; J2795; J3010; J3370; J7030; J7050; J7120; L1830